=== PATIENT | male | born 1945 | race Caucasian/White ===

== ENCOUNTER 2017-11-12 08:47 | Emergency (ER) | payer MEDICARE, BC ==
[2017-11-12] MEDS ORDERED: Ketorolac INJ* 30 MG/ML 1 ML VIAL IV PUSH ONE (08:57)
[2017-11-12] MEDS ORDERED: Dexamethasone IV* 4 MG/ML 1 ML (4 MG) IV SLOW PU ONE (08:57)
[2017-11-12] MEDS ORDERED: Orphenadrine Citrate IV* 30 MG/ML 2 ML VIAL IV SCH (09:00)
--- NOTE | 2017-11-12 09:47 | RAD ---
Indication: Back pain. 3 views of the lumbar spine disc space narrowing at L1-L2 and L2-L3 and L3-L4 is noted. No fracture is noted. Procedure arthropathy at L4-L5 and L5-S1 is noted. IMPRESSION: Degenerative disc disease at L1-L2, L2-L3 and L3-L4 without fracture.
[2017-11-12] MEDS ORDERED: oxyCODONE/Acetamin 5/325 MG* TAB PO ONE (10:41)
[2017-11-12] MEDS ORDERED: Diazepam TAB(*) 5 MG PO ONE (10:41)
[2017-11-12 11:40] LABS: ABS Basophils 0 10^3/ul (0-0.2); ABS Eosinophils 0.1 10^3/ul (0-0.6); ABS Lymphocytes 0.6 10^3/ul (1.0-4.8); ABS Monocytes 0.1 10^3/ul (0-0.8); ABS Neutrophils 4.3 10^3/ul (1.5-7.7); ABS Nucleated RBC 0 10^3/ul; Eosinophil % 1.7 % (0-6); Hematocrit 44 % (42-52); Hemoglobin 15.3 g/dl (14.0-18.0); Lymphocyte % 10.8 % (25-47); Mean Corpuscular HGB Conc 35 g/dl (31-36); Mean Corpuscular Hemoglobin 36 pg (27-31); Mean Corpuscular Volume 102 fL (80-94); Mean Platelet Volume 9 um3 (7.4-10.4); Nucleated Red Blood Cells % 0; Platelet Count 156 10^3/ul (150-450); Red Blood Count 4.29 10^6/ul (4.0-5.4); Red Cell Distribution Width 13 % (10.5-15); White Blood Count 5.1 10^3/ul (3.5-10.8)
[2017-11-12 12:01] LABS: EGFR Non-African American 89.1 (>60)
[2017-11-12 13:06] VITALS: BP 136/66
--- NOTE | 2017-11-12 17:33 | ED ---
Arabella Kendall Nilda, scribed for Ángel Nevarez MD on 11/12/17 at 0852 . Back Pain - HPI Summary HPI Summary: This patient is a 71 year old M BIBA with a chief complaint of constant severe lower back pain due to spasms for the past few days which worsened today. 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 Patient reports difficulty ambulating secondary to pain, and decreased BM due to pain. Patient denies N/V, abnormal urinary symptoms, and pain radiating to gluteus. NKDA. Patient states he was told that he has sciatica. - History of Current Complaint Stated Complaint: LOW BACK PAIN Hx Obtained From: Patient Onset/Duration: Sudden Onset, Lasting Days, Still Present Onset/Duration: Started Days Ago, Still Present Timing: Constant Back Pain Location: Is Discrete @ - lower back Character: Spasmodic Aggravating Symptom(s): Movement Alleviating Symptom(s): Nothing Associated Signs And Symptoms: Positive: Other - difficulty ambulating secondary to pain, and decreased BM due to pain. Patient denies N/V, abnormal urinary symptoms, and pain radiating to gluteus - Allergies/Home Medications Allergies/Adverse Reactions: Allergies Allergy/AdvReac Type Severity Reaction Status Date / Time No Known Allergies Allergy Verified 06/05/16 08:21 PMH/Surg Hx/FS Hx/Imm Hx Endocrine/Hematology History: Denies: Hx Diabetes Cardiovascular History: Reports: Hx Hypertension - MEDICATED Denies: Hx Pacemaker/ICD Respiratory History: Denies: Hx Asthma History: Reports: Hx Renal Disease - abnormal gfr Denies: Hx Dialysis Sensory History: Denies: Hx Hearing Aid Psychiatric History: Denies: Hx Panic Disorder - Cancer History Cancer Type, Location and Year: 2002 melanoma, no chemo. - Surgical History Surgery Procedure, Year, and Place: MELANOMA REMOVED FROM BACK 2002 - Immunization History Date of Tetanus Vaccine: <10 years Date of Influenza Vaccine: Fall 2012 - Family History Known Family History: Negative: Hypertension, Diabetes - Social History Alcohol Use: Daily Alcohol Amount: 3-4 drinks/day Substance Use Type: Reports: None Review of Systems Positive: Other - decreased BM. Negative: Vomiting, Nausea Positive: no symptoms reported Positive: Decreased ROM, Other - lower back pain; negative pain in gluteus All Other Systems Reviewed And Are Negative: Yes Physical Exam - Summary Physical Exam Summary: General: Patient is a well developed male without any distress that is lying comfortably in the stretcher. Skin: [place], warm, dry HEAD AND FACE: No signs of trauma. EYES: PERRLA, EOMI x 2. EARS: Hearing grossly intact. MOUTH: Oropharynx within normal limits. NECK: Supple, trachea is midline, no adenopathy, no JVD. CHEST: Symmetric, no tenderness at palpation LUNGS: CTA bilaterally, no rales, rhonchi or wheezing CVS: RRR, no murmur, rub, or gallop ABDOMEN: soft and Nontender without masses, no guarding or rebound. Bowel sounds are active. No Hepatosplenomegaly. No signs of inguinal hernias. BACK: Patient arrived via ambulance in to the ED room No signs of limping, antalgic, able to bear weight. No signs of trauma, no soft tissue ecchymosis. Positive paraspinal muscle tenderness in the lumbar spine. No masses palpated. No point tenderness. No CVAT, no flank ecchymosis . No sacroiliac notch tenderness, No saddle anesthesia. ROM: flexion, extension, lateral bending and rotation limited secondary to pain. Straight Leg Raise: left leg Positive at 60 degrees. Patellar reflexes: brisk, symmetric Muscle strength lower extremities: Dorsiflexion, plantar flexion of ankles normal. Heel, toe walk normal. Pulses: Femoral, popliteal, posterior tibial, and pedal pulses strong and palpable. Rectal: Patient refused the exam. Triage Information Reviewed: Yes Vital Signs On Initial Exam: Initial Vitals Temp Pulse Resp BP Pulse Ox 98.5 F 67 18 145/82 98 11/12/17 08:56 11/12/17 08:56 11/12/17 08:56 11/12/17 08:56 11/12/17 08:56 Vital Signs Reviewed: Yes Diagnostics - Vital Signs Vital Signs Temp Pulse Resp BP Pulse Ox 11/12/17 08:56 98.5 F 67 18 145/82 98 - Laboratory Result Diagrams: 11/12/17 11:27 11/12/17 11:27 Lab Statement: Any lab studies that have been ordered have been reviewed, and results considered in the medical decision making process. - Radiology Lumbar XR Radiology Interpretation Completed By: Radiologist - Lumbar XR reveals degenerative disc disease at L1-L2, L2-L3, and L3-L4 without fracture. Dr. Nevarez has reviewed this radiology report. Re-Evaluation - Re-Evaluation First Eval Re-Evaluation Time: 10:38 Comment: Reviewed imaging results with patient. Second Eval Re-Evaluation Time: 11:52 Comment: Reviewed plan to ambulate patient. Third Eval Re-Evaluation Time: 12:37 Change: Improved Comment: Patient is able to stand and ambulate. Patient feels a little better. He is agreeable to D/C. Back Pain Course/Dx - Course Assessment/Plan: This patient is a 71 year old M BIBA with a chief complaint of constant severe lower back pain due to spasms for the past few days which worsened today. 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 Patient reports difficulty ambulating secondary to pain, and decreased BM due to pain. Patient denies N/V, abnormal urinary symptoms, and pain radiating to gluteus. NKDA. Patient states he was told that he has sciatica. In the ED course an IV access was obtained. Patient was placed in a air sampling and monitoring. Patient was started with IV fluids. He was given Valium, Toradol, decadron and percocet for the back pain. Labs w/o a significant abnormality. Lumbar spine x-ray IMPRESSION: Degenerative disc disease at L1-L2, L2-L3 and L3-L4 without fracture. After medications patient was able to stand up and ambulate. Pain has significantly improved. At this point I discussed all the findings and test results with the patient. Patient was instructed to return to the emergency room immediately if any of the symptoms return or worsens. Patient understands and agrees. Patient is able to ambulate freely w/o aid or limp in the ER. Plan of care was discussed with the patient and patient understands and agrees. All questions were answered at patient satisfaction. There were no further complaints or concerns. Neurological exam before discharge: Patient is alert and oriented x 3. No acute neurological deficits. Patient is hemodynamically stable. Patient is to follow up with primary care physician in the next 2 3 days. He understands and agrees. - Diagnoses Differential Diagnosis/HQI/PQRI: Positive: Arthritis, Cauda Equina Syndrome, Fracture, Herniated Disc, Osteoporosis, Strain, Sprain Provider Diagnoses: Lower back pain, Degenerative disk disease Discharge - Discharge Plan Condition: Stable Disposition: HOME Prescriptions: Diazepam TAB(*) [Valium TAB(*)] 5 mg PO TID PRN #12 tab MDD 3 PRN Reason: Pain Ibuprofen TAB* [Motrin TAB* 600 MG] 600 mg PO Q8H PRN #30 tab PRN Reason: Pain methylPREDNISolone [Medrol Dosepak 4 MG*] 0 mg PO .SEE OMAR INSTRUCTION #1 omar oxyCODONE TAB* [Roxycodone TAB 5 mg*] 5 mg PO Q6H PRN #12 tab MDD 4 PRN Reason: Pain Patient Education Materials: Back Pain (ED) Referrals: Ilia Kevin MD [Primary Care Provider] - 3 Days Additional Instructions: RETURN TO THE EMERGENCY DEPARTMENT FOR CHANGING OR WORSENING SYMPTOMS. The documentation as recorded by the Arabella lemus Nilda accurately reflects the service I personally performed and the decisions made by Roque neff Walter, MD.
== END 2017-11-12 13:04 | disposition home or self-care (01) ==
LOC: ED 08:47
DX: M54.5 Low back pain (principal); M51.36 Other intervertebral disc degeneration, lumbar region; I10 Essential (primary) hypertension; Z85.820 Personal history of malignant melanoma of skin
CPT/HCPCS: 36415; 72100; 80053; 85025; 86140; 96374; 96375; 99283; A9270-GY; J1100; J1885; J2360

== ENCOUNTER 2019-09-17 07:47 | Emergency (ER) | payer MEDICARE, BC, OTHER ==
--- OUTSIDE RECORDS SUMMARY | 2019-09-17 07:53 | XMS REPORT | Summary of Care ---
:1945 Author Organization [facility] Address [address] [place] [address] Care Team Providers Name Role Phone Ilia Kevin MD Primary Care Provider Reason for Visit Reason Comments Follow-up patient denies any chest pain, SOB, BLE edema, palpitations, or dizziness Encounter Details Date Type Department Care Team Description 09/01/2019 Office Visit [facility] Cardiovascular [facility], [facility] Kike Quinn MD hypertension [address] [facility] (Primary Dx) [place] [phone] Allergies No Known Allergiesdocumented as of this encounter (statuses as of 09/06/2019) Medications Medication Sig Dispensed Refills Start Date End Date Status Montelukast Sodium Take 10 mg 0 Active 10 MG Oral Tablet by mouth (SINGULAIR) nightly Metoprolol Tartrate Take 50 mg 0 Active 25 MG Oral Tablet by mouth Two (LOPRESSOR) Times Daily diphenhydrAMINE HCl Take 25 mg 0 Active 25 MG Oral Capsule by mouth as (BENADRYL) needed for Itching Docusate Sodium Take by 0 Active (COLACE PO) mouth daily Multiple Take by 0 Active Vitamins-Minerals mouth daily (MULTIVITAMIN ADULT PO) Finasteride 5 MG Take 5 mg by 0 Active Oral Tablet mouth daily (PROSCAR) Vitamin D Take by 0 Active (Cholecalciferol) 25 mouth daily MCG (1000 UT) Oral Tablet Vitamin B-12 1000 Take 1,000 0 Active MCG Oral Tablet mcg by mouth (CYANOCOBALAMIN) daily metFORMIN HCl 500 MG Take 1,000 0 Active Oral Tablet mg by mouth (GLUCOPHAGE) Two times daily with meals [place]-3 Fatty Acids Take by 0 Active (FISH OIL PO) mouth Two Times Daily Tamsulosin HCl 0.4 Take 0.4 mg 0 Active MG Oral Capsule by mouth (FLOMAX) daily Tamsulosin HCl 0.4 Take 0.4 mg 0 Discontinued (No MG Oral Capsule by mouth 0 longer needed) (FLOMAX) daily MELATONIN ER PO Take by 0 Discontinued mouth as 0 (Medication needed Reconcilation) raNITIdine HCl 150 Take 150 mg 0 Discontinued MG Oral Tablet by mouth Two 0 (Medication (ZANTAC) Times Daily Reconcilation) Sennosides 8.6 MG Take 1 0 Discontinued Oral Tablet tablet by 0 (Medication (SENOKOT) mouth daily Reconcilation) Sulfamethoxazole-Tri Take 1 0 Discontinued methoprim 800-160 MG tablet by 0 (Medication Oral Tablet (BACTRIM mouth once Reconcilation) DEANNA,LIZY HUERTA) documented as of this encounter (statuses as of 09/06/2019) Active Problems Problem Noted Date Essential hypertension 09/06/2019 documented as of this encounter (statuses as of 09/06/2019) Social History Tobacco Use Types Packs/Day Years Used Date Never Smoker Smokeless Tobacco: Never Used Alcohol Use Drinks/Week oz/Week Comments Yes 2-3 shots per day Physical Activity Answer Date Recorded On average, how many days per week do you engage in moderate 0 days 2019 to strenuous exercise (like walking fast, running, jogging, dancing, swimming, biking, or other activities that cause a light or heavy sweat)? On average, how many minutes do you engage in exercise at Not asked this level? Sex Assigned at Date Recorded Not on file Job Start Date Occupation Industry Not on file Not on file Not on file Travel History Travel Start Travel End No recent travel history available. documented as of this encounter Last Filed Vital Signs Vital Sign Reading Time Taken Comments Blood Pressure 126/92 09/01/2019 11:27 AM EST Pulse 62 09/01/2019 10:58 AM EST Temperature - - Respiratory Rate 18 09/01/2019 10:58 AM EST Oxygen Saturation - - Inhaled Oxygen Concentration - - Weight 99.3 kg (219 lb) 09/01/2019 10:58 AM EST Height 177.8 cm (5' 10") 09/01/2019 10:58 AM EST Body Mass Index 31.42 09/01/2019 10:58 AM EST documented in this encounter Progress Notes Kike Robles MD - 09/01/2019 11:00 AM EST CARDIOLOGY OFFICE NOTE Sep 01, 2019 HISTORY: 73-year-old male with a history of hypertension. He had an episode of atrial fibrillation in 2018 associated with sepsis but reverted back to sinus rhythm spontaneously and has not any recurrence. Hereturns today for follow-up and is asymptomatic. He has no complaints of chest pain, shortness of breath, or palpitations. PMH: -HTN. -Pre-Diabetes. -Obesity. -Gout. -Elevated Prostate. - Sleep Apnea- uses CPAP. - Eczema. - Colonoscopy, Polyps 12/2011. - Melanoma in the right shoulder 2002. - Depression. - Cervical Herniated Disc C 3-4 noted on MRI in 2002 Reviewed, no changes. PMH / PROBLEM LIST: Past Medical History: Diagnosis Date Arthritis of right knee Atrial fibrillation and flutter PAF Cervical herniated disc 2002 C3-4 noted on MRI Depression Diabetes mellitus Pre-Diabetes Eczema Elevated PSA Gout Hypertension Melanoma 2002 Right Shoulder Sleep apnea uses CPAP There is no problem list on file for this patient. SURGICAL HISTORY: History reviewed. No pertinent surgical history. MEDICATIONS: Outpatient Medications Marked as Taking for the 09/01/19 encounter (Office Visit) with Kike Robles MD Medication Sig diphenhydrAMINE HCl 25 MG Oral Capsule (BENADRYL) Take 25 mg by mouth as needed for Itching Docusate Sodium (COLACE PO) Take by mouth daily Finasteride 5 MG Oral Tablet (PROSCAR) Take 5 mg by mouth daily metFORMIN HCl 500 MG Oral Tablet (GLUCOPHAGE) Take 1,000 mg by mouth Two times daily with meals Metoprolol Tartrate 25 MG Oral Tablet (LOPRESSOR) Take 50 mg by mouth Two Times Daily Montelukast Sodium 10 MG Oral Tablet (SINGULAIR) Take 10 mg by mouth nightly Multiple Vitamins-Minerals (MULTIVITAMIN ADULT PO) Take by mouth daily [place]-3 Fatty Acids (FISH OIL PO) Take by mouth Two Times Daily Tamsulosin HCl 0.4 MG Oral Capsule (FLOMAX) Take 0.4 mg by mouth daily Vitamin B-12 1000 MCG Oral Tablet (CYANOCOBALAMIN) Take 1,000 mcg by mouth daily Vitamin D (Cholecalciferol) 25 MCG (1000 UT) Oral Tablet Take by mouth daily FAMILY HISTORY: Family History Problem Relation Age of Onset Liver disease Mother Cancer Father SOCIAL HISTORY: Social History Tobacco Use Smoking status: Never Smoker Smokeless tobacco: Never Used Substance Use Topics Alcohol use: Yes Comment: 2-3 shots per day Drug use: Not on file TOBACCO USE: Social History Tobacco Use Smoking Status Never Smoker Smokeless Tobacco Never Used PHYSICAL EXAM: Vitals: 09/01/19 1058 09/01/19 1127 BP: (!) 160/94 (!) 126/92 BP Location: Left arm Right arm Patient Position: Sitting Sitting Cuff size: Regular Adult Large Pulse: 62 Resp: 18 Weight: 99.3 kg (219 lb) Height: 1.778 m (5' 10") BMI: Body mass index is 31.42 kg/m. GEN: Alert and Oriented in no acute distress NECK: No JVD, Carotids 2+ bilaterally without bruits HEART: S1, S2 RRR, no murmurs, rubs, or gallops LUNGS: CTA bilaterally, no wheezing, rales, or rhonchi ABDOMEN: Soft, non tender, non distended with normal bowel sounds EXT: No edema bilaterally. Palpable distal pulses ECHO 01/2019: * The left ventricle is normal in size and wall thickness. There is normal regional wall motion. LV systolic function is normal. Estimated left ventricular ejection fraction is 55 percent. Impaired diastolic relaxation is present. * Mild mitral annular calcification is presen IMPRESSION / PLAN: 1. Hypertension- blood pressure was initially elevated today but appears better on recheck. Home blood pressure readings have been normotensive based on the list that he provides. Blood pressures have run anywhere from about 110- 130 systolic with diastolics in the 70s and 80s. I just asked him to continue to monitor his blood pressure and restrict his sodium. 2. History of transient atrial fibrillation related to sepsis. No recurrence No orders of the defined types were placed in this encounter. Follow up: 1 year Kike Robles MD, [facility] [address] [address] Cardiovascular Group [phone] signed by Kike Robles MD at 09/06/2019 4: 47 PM ESTdocumented in this encounter Plan of Treatment Not on filedocumented as of this encounter Results Not on filedocumented in this encounter Visit Diagnoses Diagnosis Essential hypertension - Primary Unspecified essential hypertension documented in this encounter
--- OUTSIDE RECORDS SUMMARY | 2019-09-17 07:53 | XMS REPORT | Continuity of Care Document ---
:1945 External Reference #:[id number] Author Name Mayi Rascon MD (transmitted by agent of provider Sol Stanford) Address [address], [address] [place] [address] Care Team Providers Name Role Phone Ilia Kevin MD - Family Medicine Care Team Information Solaris Administrator Koko York MD - Sports Medicine Care Team Information Solaris Administrator Problems Active Problems Provider Date Numbness of foot Maciel Torres M.D. Onset: 05/11/2016 Localized, primary osteoarthritis Elisa Hoang M.D. Onset: 07/19/2019 Contracture of palmar fascia John Bonds MD Onset: 08/27/2017 Social History Type Date Description Comments Sex Unknown ETOH Use consumes 3-4 glasses of wine per day Tobacco Use Start: Unknown Patient has never smoked Recreational Drug Use Denies Drug Use Smoking Status Reviewed: 08/14/19 Patient has never smoked Exercise Type/Frequency Exercises regularly Allergies, Adverse Reactions, Alerts Description No Known Drug Allergies Medications Active Medications SIG Qnty Indications Ordering Provider Date Meloxicam 1 by mouth every 90tabs M25.561 Elisa Hoang, 07/19/2019 15mg Tablets day M.D. Metoprolol Tartrate 2 in am and 2 at ShallishIlia, 50mg hs MD Tablets Montelukast Sodium once a day Shallish Ilia, 10mg MD Tablets Tamsulosin HCL once a day Cedric Richmond, 0.4mg MD Capsules Finasteride 1 po qd Arsenio Hay, 5mg Tablets MD Multivitamin Adult vitamin d, b Unknown multi and fish Tablets oil 1 by mouth every day Vitamin B Complex 1 by mouth every Unknown day Tablets Vitamin D 1 by mouth every Unknown (Cholecalciferol) day 1000Unit Capsules Benadryl Allergy Unknown Metformin HCL Unknown Ra Col-Rite take 1 capsule Unknown 100mg by mouth one to Capsules two times a day Centrum Silver 1 by mouth every Unknown Tablets day C[place]aw Unknown 500mg Capsules Medications Administered in Office Medication SIG Qnty Indications Ordering Provider Date Depomedrol 40MG Elisa Hoang M.D. 07/19/2019 Injection Xiaflex Inj Monica lEadio, 04/17/2014 Collagenase,Clostridium M.D. Histolyticum, 0.01MG Injection Xiaflex Inj Monica Elvin-Andrew, 04/17/2014 Collagenase,Clostridium M.D. Histolyticum, 0.01MG Injection Immunizations Description No Information Available Vital Signs Date Vital Result Comment 08/14/2019 1:41pm Height 70 inches 5'10" Weight 215.00 lb Heart Rate 58 /min BP Systolic Sitting 120 mmHg BP Diastolic Sitting 80 mmHg O2 % BldC Oximetry 97 % BMI (Body Mass Index) 30.8 kg/m2 07/19/2019 12:14pm Height 70 inches 5'10" Weight 221.25 lb Heart Rate 60 /min BP Systolic 126 mmHg BP Diastolic 78 mmHg Respiratory Rate 16 /min Pain Level 5 BMI (Body Mass Index) 31.7 kg/m2 Results Description No Information Available Procedures Date Code Description Status 07/19/2019 63223 Inject/Drain Joint/Bursa Major W/O US Completed 05/31/2017 06653621 Colonoscopy Completed Medical Devices Description No Information Available Encounters Type Date Location Provider Dx Diagnosis Office Visit 08/14/2019 [facility] Rascon, G47.33 Obstructive sleep 2:[facility] (adult) Duplicate Maker (pediatric) Office Visit 07/19/2019 [facility] Elisa Hoang, M25.561 Pain in right knee 11:15a at [place] [facility] M25.461 Effusion, right knee M17.11 Unilateral primary osteoarthritis, right knee Assessments Date Code Description Provider 08/14/2019 G47.33 Obstructive sleep apnea (adult) (pediatric) Mayi Rascon MD 07/19/2019 M25.561 Pain in right knee Elisa Hoang M.D. 07/19/2019 M25.461 Effusion, right knee Elisa Hoang M.D. 07/19/2019 M17.11 Unilateral primary osteoarthritis, right knee Elisa Hoang M.D. Plan of Treatment Future Appointment(s):09/15/2019 2:00 pm - Dai Pantoja NP at [facility]09/18/2019 1:15 pm - Elisa Hoang M.D. at [facility]08/14/2019 - Mayi Rascon MDG47.33 Obstructive sleep apnea (adult) (pediatric)Follow up:1 month Functional Status Description No Information Available Mental Status Description No Information Available Referrals Description No Information Available
--- OUTSIDE RECORDS SUMMARY | 2019-09-17 07:53 | XMS REPORT | Continuity of Care Document ---
:1945 External Reference #:[id number] Author Name Elisa Hoang M.D. (transmitted by agent of provider Jennifer Alejandra) Address [address] [place] [address] Care Team Providers Name Role Phone Ilia Kevin MD - Family Medicine Care Team Information English Composition Instructor [phone] Koko York MD - Sports Medicine Care Team Information English Composition Instructor [phone] Problems Active Problems Provider Date Numbness of foot Maciel Torres M.D. Onset: 05/11/2016 Localized, primary osteoarthritis Elisa Hoang M.D. Onset: 07/19/2019 Contracture of palmar fascia John Bonds MD Onset: 08/27/2017 Social History Type Date Description Comments Sex Unknown ETOH Use Currently consumes about 20 drinks/week alcohol Tobacco Use Start: Unknown Patient has never smoked Smoking Status Reviewed: 07/19/19 Patient has never smoked Exercise Exercises regularly Type/Frequency Allergies, Adverse Reactions, Alerts Description No Known Drug Allergies Medications Active Medications SIG Qnty Indications Ordering Provider Date Meloxicam 1 by mouth every 90tabs M25.561 Elisa Hoang, 07/19/2019 15mg Tablets day M.D. Metoprolol Tartrate 2 in am and 2 at Shallish Ilia, 50mg hs MD Tablets Montelukast Sodium once [...] Medication SIG Qnty Indications Ordering Provider Date Xiaflex Inj Monica OconnorJoseAndrew, 04/17/2014 Collagenase,Clostridium M.D. Histolyticum, 0.01MG Injection Xiaflex Inj Monica StevensonAndrew, 04/17/2014 Collagenase,Clostridium M.D. Histolyticum, 0.01MG Injection Immunizations Description No Information Available Vital Signs Date Vital Result Comment 07/19/2019 12:14pm Height 70 inches 5'10" Weight 221.25 lb Heart Rate 60 /min BP Systolic 126 mmHg BP Diastolic 78 mmHg Respiratory Rate 16 /min Pain Level 5 BMI (Body Mass Index) 31.7 kg/m2 08/27/2017 10:31am Height 71 inches 5'11" Weight 229.00 lb Heart Rate 63 /min BP Systolic 140 mmHg BP Diastolic 66 mmHg Respiratory Rate 20 /min Body Temperature 98.0 F Pain Level 0 BMI (Body Mass Index) 31.9 kg/m2 Results Description No Information Available Procedures Date Code Description Status 07/19/2019 77541 Inject/Drain Joint/Bursa Major W/O US Completed 05/31/2017 [id number] Colonoscopy Completed Medical Devices Description No Information Available Encounters Description No Information Available Assessments Date Code Description Provider 07/19/2019 M25.561 Pain in right knee Elisa Hoang M.D. 07/19/2019 M25.461 Effusion, right knee Elisa Hoang M.D. 07/19/2019 M17.11 Unilateral primary osteoarthritis, right knee Elisa Hoang M.D. Plan of Treatment Future Appointment(s):09/18/2019 1:15 pm - Elisa Hoang M.D. at [facility] at P[facility]3408/14/2019 2:00 pm - Mayi Rascon MD at [facility]07/19/2019 - Elisa Hoang M.D.M25.561 Pain in right kneeNew Medication:Meloxicam 15 mg - 1 by mouth every dayNew Xrays:Knee 3 Views RT, Ordered: 07/19/19New Therapy:Physical TherapyFollow up:Follow up: 2 jikfstA46.461 Effusion, right kneeM17.11 Unilateral primary osteoarthritis, right knee Functional Status Description No Information Available Mental Status Description No Information Available Referrals Description No Information Available
[2019-09-17 08:05] VITALS: BP 167/88
--- NOTE | 2019-09-17 08:25 | UC ---
Throat Pain/Nasal Adelfo HPI - HPI Summary HPI Summary: has been sick with nasal congestion for 1 week. yesterday started to cough and experience facial pressure. cannot stop blowing nose and has diff sleeping last night. Is taking DayQuil/NyQuil for symptom relief - History of Current Complaint Chief Complaint: UCRespiratory Stated Complaint: COUGH, COLD SYMPTOMS Time Seen by Provider: 09/17/19 07:58 Hx Obtained From: Patient Onset/Duration: Gradual Onset Severity: Moderate Pain Intensity: 5 Cough: Nonproductive Associated Signs & Symptoms: Positive: Sinus Discomfort, Nasal Discharge - Allergies/Home Medications Allergies/Adverse Reactions: Allergies Allergy/AdvReac Type Severity Reaction Status Date / Time No Known Allergies Allergy Verified 06/05/16 08:21 Home Medications: Home Medications Metformin ER (NF) 1,000 mg PO BID 09/17/19 [History Confirmed 09/17/19] PMH/Surg Hx/FS Hx/Imm Hx Previously Healthy: Yes Endocrine History: Diabetes Cardiovascular History: Hypertension GI/ History: Other - BPH - Surgical History Surgical History: Yes Surgery Procedure, Year, and Place: 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 Negative: Fever, Chills Skin: Positive: Negative. Negative: Rash Eyes: Positive: Negative. Negative: Drainage ENT: Positive: Nasal Discharge, Sinus Congestion, Sinus Pain/Tenderness. Negative: Sore Throat, Ear Ache Respiratory: Positive: Cough. Negative: Shortness Of Breath Cardiovascular: Positive: Negative Gastrointestinal: Positive: Negative. Negative: Vomiting, Diarrhea, Nausea Musculoskeletal: Positive: Negative Neurological: Positive: Negative. Negative: Headache Psychological: Positive: Negative Is Patient Immunocompromised?: No Physical Exam Triage Information Reviewed: Yes Appearance: Well-Appearing, No Pain Distress, Well-Nourished Vital Signs: Initial Vital Signs Temp 97.3 F 09/17/19 07:56 Pulse 68 09/17/19 07:56 Resp 16 09/17/19 07:56 BP 167/88 09/17/19 07:56 Pulse Ox 96 09/17/19 07:56 Vital Signs Reviewed: Yes Eye Exam: Normal Eyes: Positive: Conjunctiva Clear Neck exam: Normal Respiratory Exam: Normal Respiratory: Positive: Lungs clear, Other: - dry copugh on exam. Negative: Respiratory distress Cardiovascular Exam: Normal Cardiovascular: Positive: RRR Neurological Exam: Normal Neurological: Positive: Alert Psychological Exam: Normal Skin Exam: Normal Skin: Negative: Rashes Throat Pain/Nasal Course/Dx - Differential Dx/Diagnosis Differential Diagnosis/HQI/PQRI: Influenza, Sinusitis, URI Provider Diagnosis: Pneumonia Discharge ED - Sign-Out/Discharge Documenting (check all that apply): Patient Departure All imaging exams completed and their final reports reviewed: No Studies - Discharge Plan Condition: Good Disposition: HOME Prescriptions: Cefdinir cap* [Cefdinir 300 MG cap (NF)] 300 mg PO BID #20 cap Patient Education Materials: Sinusitis (ED) Referrals: Ilia Kevin MD [Primary Care Provider] - 2 Days (If no better) Additional Instructions: Drink plenty of fluids and rest start antibiotic and take as prescribed Use your DayQuil/NyQuil as directed for symptom relief - Billing Disposition and Condition Condition: GOOD Disposition: Home - Attestation Statements Provider Attestation: This patient was not seen by me. I was available for consult. Chart reviewed. KASIE
== END 2019-09-17 08:36 | disposition home or self-care (01) ==
LOC: UCEAST 07:47
DX: J18.9 Pneumonia, unspecified organism (principal); R09.81 Nasal congestion; I10 Essential (primary) hypertension; E11.9 Type 2 diabetes mellitus without complications; Z79.84 Long term (current) use of oral hypoglycemic drugs
CPT/HCPCS: 99212; G0463